=== PATIENT | female | born 1940 | race Caucasian/White ===

== ENCOUNTER 2019-04-28 06:59 | Day surgery (SDC) | payer MEDICARE, BC, MEDICAID ==
[~2019-04-28] VITALS: Ht 152.4 cm; Wt 77.3 kg
[~2019-04-28 06:59] MED LIST: METOPROLOL TART50 MG PO; OMEPRAZOLE20 M1 PO; OMNICEF300 MG PO; PREDNISONE50 MG PO
[2019-04-28 07:29] LABS: HEMATOCRIT 43.6 % (36.0-48.0); HEMOGLOBIN 14.4 g/dL (12-16); MCH 28.7 pg (26.0-34.0); MCV 86.9 fL (80.0-100.0); MEAN PLATELET VOLUME 11.1 fL (7.4-10.4); RBC 5.02 10x6/uL (4.00-5.40); RDW 13.6 % (11.5-14.5); WBC 6.5 10x3/uL (4.8-10.8)
[2019-04-28] MEDS ORDERED: TRIAMTERENE-HC1 EAC3 PO (07:58)
[2019-04-28] MEDS ORDERED: BISOPROLOL FUMAR5 MG PO (07:58)
[2019-04-28] MEDS ORDERED: PROTONIX40 MG PO (07:59)
[2019-04-28] MEDS ORDERED: MOBIC7.5 MG PO (08:00)
[2019-04-28 08:02] VITALS: BP 126/75; Ht 152.4 cm; Wt 77.3 kg
--- NOTE | 2019-04-28 10:14 | NUR ---
0942 IV DC'D. CATHETER TIP INTACT. NO BLEEDING AT SITE. BANDAID APPLIED.
--- NOTE | 2019-04-30 09:54 | OP ---
PATIENT NAME: TARA BOWERS MEDICAL RECORD: [id number] :41 LOCATION:[facility] ADMISSION DATE: SURGEON: NGHIA BEDOYA DO DATE OF OPERATION: 04/28/2019 PROCEDURE: EGD with biopsies. INDICATIONS FOR PROCEDURE: Dysphagia, heartburn, right upper quadrant abdominal pain, nausea. SCOPE: Olympus video gastroscope. MEDICATIONS: Propofol 100 mg IV per anesthesia. ESTIMATED BLOOD LOSS: Minimal. COMPLICATIONS: None. FINDINGS: Informed consent was given. The patient was made comfortable with the above medication. After reaching an adequate level of sedation by slow IV push, the patient was placed on her left side. The endoscope was advanced under direct visualization through the mouth to the second portion of the duodenum. The upper, middle, and lower thirds of the esophagus appeared normal. Random cold forceps biopsies were taken from the mid esophagus to exclude the presence of eosinophils. At the GE junction, there was evidence of erosive reflux-induced esophagitis with a couple superficial ulcers which bled on contact. The cold forceps biopsies were taken at the squamocolumnar junction. The endoscope was then advanced through the GE junction into the stomach and retroflexed to view the cardia, where a small sliding hiatal hernia was present. The mucosa of the stomach appeared normal. Some cold forceps biopsies were taken randomly in the antrum and incisura to submit for histopathology and to rule out the presence of H. pylori. The endoscope was advanced beyond the pylorus into the duodenum, which appeared normal to the second portion. The endoscope was then withdrawn from the patient. The patient tolerated the procedure well and there were no complications. IMPRESSION: 1. Erosive reflux-induced esophagitis with a couple superficial ulcerations that blood on contact. 2. Small sliding hiatal hernia. PLAN AND RECOMMENDATIONS: 1. Discharge home when recovery parameters are met. 2. Follow up biopsy specimen results. 3. GERD diet and reflux precautions. 4. Continue current medications, including Protonix 40 mg daily. 5. Consider a barium esophagram and/or manometry study if dysphagia persists. 6. Right upper quadrant ultrasound regarding the right upper quadrant abdominal pain and nausea. 7. Consider PIPIDA scan if ultrasound is normal. 8. Gastric emptying scan to follow above workup if all is negative. TRANSINT:[id number] Voice Confirmation ID: [id number] DOCUMENT ID: [id number] OPERATIVE REPORT [id number] TARA BOWERS NATHAN A DO at 0954 CC: [id number] DICTATION DATE: 04/28/19900 YARN TWISTER: 04/28/1945 [facility] 04/28/19 [facility] [address] [place] [address]
== END 2019-04-28 10:11 | disposition home or self-care (01) ==
LOC: D.OPS 06:59
PROVIDERS: Anesthesiology; ATTEND Internal Medicine Gastroenterology
DX: K22.11 Ulcer of esophagus with bleeding (principal); R13.10 Dysphagia, unspecified; R12 Heartburn; K21.0 Gastro-esophageal reflux disease with esophagitis; K44.9 Diaphragmatic hernia without obstruction or gangrene

== ENCOUNTER → 2019-04-29 07:09 | Outpatient (CLI) | payer MEDICARE, BC, MEDICAID ==
[2019-04-28 08:02] VITALS: BMI 33.2
[~2019-04-29 07:09] MED LIST changes: +BISOPROLOL FUMAR5 MG PO; +MOBIC7.5 MG PO; +PERCOCET 5-3251 TAB PO; +PROTONIX40 MG PO; +TRIAMTERENE-HC1 EAC3 PO
== END | disposition home or self-care (01) ==
LOC: D.US 07:09
PROVIDERS: ATTEND Internal Medicine Gastroenterology
DX: R10.9 Unspecified abdominal pain (principal); R11.0 Nausea

== ENCOUNTER → 2019-05-08 09:29 | Outpatient (CLI) | payer MEDICARE, BC, MEDICAID ==
[2019-04-28 08:02] VITALS: BMI 33.2
== END | disposition home or self-care (01) ==
LOC: D.OPS 09:29
PROVIDERS: ATTEND Internal Medicine Gastroenterology
DX: R13.10 Dysphagia, unspecified (principal)

== ENCOUNTER → 2019-05-12 08:25 | Outpatient (CLI) | payer MEDICARE, BC, MEDICAID ==
[2019-04-28 08:02] VITALS: BMI 33.2
== END | disposition home or self-care (01) ==
LOC: D.MRI 08:25
PROVIDERS: ATTEND Internal Medicine Gastroenterology
DX: R93.89 Abnormal findings on diagnostic imaging of other specified body structures (principal); K76.9 Liver disease, unspecified

== ENCOUNTER → 2019-05-21 08:57 | Outpatient (CLI) | payer MEDICARE, BC, MEDICAID ==
[2019-04-28 08:02] VITALS: BMI 33.2
== END | disposition home or self-care (01) ==
LOC: D.NM 08:57
PROVIDERS: ATTEND Internal Medicine Gastroenterology
DX: R11.0 Nausea (principal); R10.9 Unspecified abdominal pain

== ENCOUNTER 2019-06-16 05:36 | Day surgery (SDC) | payer MEDICARE, BC, MEDICAID ==
[~2019-06-16] VITALS: Ht 154.9 cm; Wt 78.0 kg
[~2019-06-16 05:36] MED LIST changes: -PERCOCET 5-3251 TAB PO
[2019-06-16 06:58] VITALS: BP 138/71; Ht 154.9 cm; Wt 78.0 kg
[2019-06-16 07:20] LABS: HEMATOCRIT 41.2 % (36.0-48.0); HEMOGLOBIN 13.4 g/dL (12-16); MCH 29.1 pg (26.0-34.0); MCHC 32.5 g/dL (31.0-37.0); MCV 89.6 fL (80.0-100.0); MEAN PLATELET VOLUME 11.5 fL (7.4-10.4); RBC 4.6 10x6/uL (4.00-5.40); RDW 14.5 % (11.5-14.5); WBC 6.7 10x3/uL (4.8-10.8)
[2019-06-16] MEDS ORDERED: PERCOCET 5-3251 TAB PO (09:05)
--- NOTE | 2019-06-16 11:35 | NUR ---
PT IS RESTING QUIETLY IN BED. 2 SIDE RAILS UP. FAMILY AT BEDSIDE. DENIES PAIN/NEEDS AT THIS TIME. DOES NOT WANT FOOD/DRINK AT THIS TIME. PT STATES SHE DOES NOT NEED TO VOID AT THIS TIME.
--- NOTE | 2019-06-16 12:06 | NUR ---
PT VOIDED. DC INSTRUCTIONS GIVEN TO PT/FAMILY. STATE UNDERSTANDING. DC'D IV CATH FULLY INTACT.
--- NOTE | 2019-06-16 12:20 | NUR ---
PT LEFT UNIT VIA WC AT 1214
== END 2019-06-16 12:14 | disposition home or self-care (01) ==
LOC: D.OPS 05:36 → D.PAN 08:00 → D.OPS 08:00 → D.PAN 06-23 08:00 → D.OPS 06-23 08:00
PROVIDERS: Anesthesiology; ATTEND Surgery
DX: K82.8 Other specified diseases of gallbladder (principal); R10.11 Right upper quadrant pain; I11.0 Hypertensive heart disease with heart failure; I50.9 Heart failure, unspecified; J45.909 Unspecified asthma, uncomplicated; K21.9 Gastro-esophageal reflux disease without esophagitis; R06.00 Dyspnea, unspecified; I27.20 Pulmonary hypertension, unspecified

== ENCOUNTER → 2019-09-25 08:18 | Outpatient (CLI) | payer MEDICARE, BC, MEDICAID ==
[2019-06-16 06:58] VITALS: BMI 32.5
[~2019-09-25 08:18] MED LIST changes: +PERCOCET 5-3251 TAB PO
== END | disposition home or self-care (01) ==
LOC: D.RAD 08:18
PROVIDERS: ATTEND Internal Medicine Gastroenterology
DX: R13.10 Dysphagia, unspecified (principal); R12 Heartburn; R11.2 Nausea with vomiting, unspecified